=== PATIENT | male | born 1945 | race Caucasian/White ===

== ENCOUNTER 2020-03-18 16:56 | Emergency (ER) | payer MEDICARE, BC ==
[~2020-03-18] VITALS: Ht 170.2 cm; Wt 85.3 kg
[~2020-03-18 16:56] MED LIST: AMLO10 PO; ASPI325 PO; ASPI81CH PO; CHOL10002 PO; CLOP75 PO; Ecotrin325 MG PO; LEVSOD100 PO; LISHYD2025 PO; LISI20 PO; METF500C PO; METO25ER PO; OMEG1CAP30 PO; OXYACE5T PO; OXYC5 PO; SPIR25 PO; TRAM50 PO
[2020-03-18 17:48] LABS: BASOPHILS ABSOLUTE AUTO 0.07 K/mm3 (0.00-0.23); BASOPHILS PERCENT AUTO 1 % (0-2); EOSINOPHILS ABSOLUTE AUTO 0.16 K/mm3 (0.00-0.68); EOSINOPHILS PERCENT AUTO 2 % (0-6); Hematocrit 48.7 % (37.0-53.0); IMMATURE GRAN ABSOLUTE AUTO 0.01 K/mm3 (0.00-0.10); IMMATURE GRAN PERCENT AUTO 0 % (0-1); LYMPHOCYTES ABSOLUTE AUTO 1.46 K/mm3 (0.84-5.20); LYMPHOCYTES PERCENT AUTO 20 % (21-46); MONOCYTES ABSOLUTE AUTO 0.56 K/mm3 (0.16-1.47); MONOCYTES PERCENT AUTO 8 % (4-13); Mean Corpuscular HGB Conc 32.9 g/dL (31.5-36.5); Mean Corpuscular Volume 88 fL (80-100); Mean Platelet Volume 10.4 fL (9.1-12.4); NEUTROPHILS ABSOLUTE AUTO 5.23 K/mm3 (1.96-9.15); NEUTROPHILS PERCENT AUTO 70 % (41-73); Platelet Count 205 K/mm3 (150-400); RDW Coefficient Variation 12.9 % (11.7-14.2); RDW Standard Deviation 42.3 fL (35.1-46.3); Red Blood Cell Count 5.52 M/mm3 (4.30-5.90); White Blood Cell Count 7.49 K/mm3 (4.00-11.30)
[2020-03-18 18:12] LABS: Alanine Aminotransfer (ALT/SGP 20 U/L (12-78); Albumin, Blood 4.2 g/dL (3.4-5.0); Albumin/Globulin Ratio 1.1 (0.8-1.8); Alk Phos 44 U/L (50-136); Anion Gap 8 mmol/L (6-16); Aspartate Aminotrans (AST/SGOT 17 U/L (12-37); Bilirubin, Total 0.6 mg/dL (0.1-1.0); Blood Urea Nitrogen 27 mg/dL (8-24); CO2, Blood 26 mmol/L (21-32); Calcium, Blood 9.4 mg/dL (8.5-10.1); Chloride, Blood 105 mmol/L (98-108); Globulin, Blood 3.7 g/dL (2.2-4.0); Glomerular Filtration Rate >60 (60-); Glucose, Blood 134 mg/dL (70-99); Sodium, Blood 139 mmol/L (136-145); Total Protein, Blood 7.9 g/dL (6.4-8.2); Troponin I <0.015 ng/mL (0.000-0.040)
[2020-03-18] MEDS ORDERED: MOTION RELIEF25 MG PO (19:25)
== END 2020-03-18 19:34 | disposition home or self-care (01) ==
LOC: ER 16:56
PROVIDERS: Physician Assistant
DX: R42 Dizziness and giddiness (principal); R51.9 Headache, unspecified; E78.5 Hyperlipidemia, unspecified; I12.9 Hypertensive chronic kidney disease with stage 1 through stage 4 chronic kidney disease, or unspecified chronic kidney disease; E11.22 Type 2 diabetes mellitus with diabetic chronic kidney disease; N18.9 Chronic kidney disease, unspecified; E03.9 Hypothyroidism, unspecified; I25.10 Atherosclerotic heart disease of native coronary artery without angina pectoris; Z79.02 Long term (current) use of antithrombotics/antiplatelets; Z79.84 Long term (current) use of oral hypoglycemic drugs; Z79.899 Other long term (current) drug therapy; Z79.82 Long term (current) use of aspirin; Z86.73 Personal history of transient ischemic attack (TIA), and cerebral infarction without residual deficits
CPT/HCPCS: 36415; 70450; 80053; 84484; 85025; 93005; 93010; 99285-25

== ENCOUNTER 2022-03-03 11:04 | Day surgery (SDC) | payer OTHER ==
[~2022-03-03] VITALS: Ht 172.7 cm; Wt 181.8 kg
[~2022-03-03 11:04] MED LIST changes: +MOTION RELIEF25 MG PO
== END 2022-03-03 13:12 | disposition home or self-care (01) ==
LOC: ORSCSDS 11:04
PROVIDERS: Internal Medicine Gastroenterology
PROC: 0DBN8ZX Excision of Sigmoid Colon, Via Natural or Artificial Opening Endoscopic, Diagnostic (ICD-10-PCS; principal; 2022-03-03 12:15)
DX: Z12.11 Encounter for screening for malignant neoplasm of colon (principal); Z86.010 Personal history of colon polyps; K63.5 Polyp of colon; R79.89 Other specified abnormal findings of blood chemistry; E11.9 Type 2 diabetes mellitus without complications; Z79.84 Long term (current) use of oral hypoglycemic drugs; Z79.01 Long term (current) use of anticoagulants; Z79.899 Other long term (current) drug therapy
CPT/HCPCS: 82947; 88305; J2704; J7120

== ENCOUNTER 2024-06-29 11:06 | Day surgery (SDC) | payer OTHER ==
[~2024-06-29] VITALS: Ht 170.2 cm; Wt 79.8 kg
[~2024-06-29 11:06] MED LIST changes: +Balanced Salt Epinephrine Irrigation Solution 500 mL IR SCH; +Lidocaine HCl/Pf 1% 5 ML VIAL XX SCH; +Moxifloxacin HCL 0.5 MG/0.1 ML 0.4MLSYR RIGHTEYE SCH; +NS 500 ML IV ONE; +PHENYLEPHRINE\\TROPICAMIDE\\TETRACAINE OPHTHALMIC DILATING SOLN RIGHTEYE PRN; +Povidone-Iodine 450 DROP/30 ML Solution ONE; +Povidone-Iodine 450 DROP/30 ML Solution RIGHTEYE SCH; +Tetracaine HCl/Pf 0.5% Opth Soln 4 ml ONE
[2024-06-29] MEDS ORDERED: SITA100T2 PO (12:18)
[2024-06-29] MEDS ORDERED: JARDIANCE25 MG PO (12:18)
[2024-06-29] MEDS ORDERED: Prinivil10 MG PO (12:20)
[2024-06-29] MEDS ORDERED: PROBIOTIC1 EA14 PO (12:21)
[2024-06-29] MEDS ORDERED: ENDARI5 G1 (12:21)
[2024-06-29] MEDS ORDERED: ADCIRCA20 MG PO (12:22)
[2024-06-29] MEDS ORDERED: GARLIC200 MG PO (12:22)
[2024-06-29] MEDS ORDERED: MULVITA PO (12:23)
[2024-06-29] MEDS ORDERED: NS 500 ML IV ONE (12:31)
[2024-06-29] MEDS ORDERED: Midazolam HCl 1MG / ML 2ML Vial ONE (12:39)
[2024-06-29 13:08] VITALS: BP 150/82
--- NOTE | 2024-06-29 13:14 | NUR ---
06/29/24 1314 MADELINE GROSSMAN IN TO GO OVER DC INSTRUCTIONS.
== END 2024-06-29 13:28 | disposition home or self-care (01) ==
LOC: ORSCSDS 11:06
PROVIDERS: Student in an Organized Health Care Education/Training Program
PROC: 08RJ3JZ Replacement of Right Lens with Synthetic Substitute, Percutaneous Approach (ICD-10-PCS; principal; 2024-06-29 13:00)
DX: E11.36 Type 2 diabetes mellitus with diabetic cataract (principal); H25.813 Combined forms of age-related cataract, bilateral; H52.201 Unspecified astigmatism, right eye; I10 Essential (primary) hypertension; E78.5 Hyperlipidemia, unspecified; I25.10 Atherosclerotic heart disease of native coronary artery without angina pectoris; E03.9 Hypothyroidism, unspecified; Z79.84 Long term (current) use of oral hypoglycemic drugs; Z79.82 Long term (current) use of aspirin; Z79.899 Other long term (current) drug therapy
CPT/HCPCS: 82947; J2250; J7040; V2632